=== PATIENT | female | born 1955 | race Caucasian/White ===

== ENCOUNTER → 2016-11-25 | Outpatient (CLI) | payer OTHER ==
[~2016-11-25] MED LIST: ALEVE220 M1 PO; BAYER ASPIRIN325 M1 PO; GLUCOPHAGE XR750 MG PO; HYDROCODON-ACE1 EAC5 PO; INVOKANA100 MG PO; SOMA PO; SYNTHROID175 MCG PO; ZOLOFT PO
--- NOTE | ~2016-11-25 | CO ---
Unit #: [id number] #: [id number] Patient: MELANI ALCARAZ [id number] [address] [place], [place] [address] [id number] O MR#: [id number] NAME: MELANI ALCARAZ ROOM: Age: 61 Sex: F Admission Date: 11/25/2016 : 1955 Attending Physician: Fedreico Barroso M.D. Primary Care Physician: Girish Flores M.D. CONSULTATION REPORT ADDENDUM This is an addendum to . The patient's final urine culture returned positive for Strep agalactiae group B, 80,000 to 90,000 cfu/mL. I spoke with the patient this morning and I have called in Keflex 500 mg tab, one p.o. q.i.d. x7 days, #28, no refills, to her [facility] pharmacy at [facility] in [place], . I have discussed this in detail with the patient. She is to pick the prescription up and start it today. She is to stop the medication and contact me for any concerning adverse effects and/or angioedema, shortness of air, to call 911. The patient does not have an allergy to Keflex per her report. The patient also shows a small amount of yeast in the urine sample. She does not have vaginal symptoms at this time. I have ordered a prescription for Diflucan 150 mg tab, one p.o., on the last day of antibiotics. I have also ordered recheck through clean catch versus straight cath specimen per Dr. Barroso's standing preop orders with C and S if indicated the a.m. of OR to assure clearance of infection. Dictated by... Sonia Hernandez A.P.R.N. for Julio Stone/renetta TD: 11/30/2016 10:41 JOB #: [id number] CONSULTATION REPORT Page 1 of 1 X Sonia Hernandez APRN X CONSULTATION REPORT
--- NOTE | ~2016-11-25 | EKG ---
PATIENT: MELANI ALCARAZ UNIT #: [id number] Ventricular Rate: 55 BPM Atrial Rate: 55 BPM P-R Interval: 178 ms QRS Duration: 78 ms Q-T Interval: 422 ms QTC Calculation(Bezet): 403 ms P [place]: 63 degrees Calculated R [place]: 18 degrees Calculated T [place]: 15 degrees Diagnosis Line: Sinus bradycardia Diagnosis Line: Otherwise normal ECG Diagnosis Line: No previous ECGs available Diagnosis Line: Confirmed by MIK RUEDA MD ([id number]) on 11/25/2016 Diagnosis Line: 10:40:35 PM INTERPRETING MD: MARYBETH JOHNSON
--- NOTE | ~2016-11-25 | CR63 ---
[facility] A Service of [facility] & [facility] RADIOLOGY TEXT RESULTS PATIENT: MELANI ALCARAZ LOCATION: [facility] : 51 UNIT #: [id number] AGE: [address]: Federico Barroso MD SEX: F ORDER DR: [id number] [facility] [address] [place], [place] [address] [id number] O MR#: [id number] Acc #: [id number] NAME: MELANI ALCARAZ : 1955 SEX: F STUDY DATE/TIME: 11/25/2016 9:38 UNIT: [facility] ROOM: STUDY DESCRIPTION: CR Chest 2 View Attending Physician: Federico Barroso M.D. Referring Physician: Federico Barroso M.D. Ordering Physician: Federico Barroso M.D. Primary Care Physician: Girish Flores M.D. MEDICAL IMAGING REPORT This report is preliminary unless electronic signature is present EXAM Chest, 11/25/2016 HISTORY 61-year-old woman preop total left knee arthroplasty. Osteoarthritis. History of diabetes. COMPARISON None FINDINGS Two-view chest demonstrates normal heart size. Hilar structures are preserved. Bilateral lungs are expanded and clear. Costophrenic angles are clear. IMPRESSION Negative preop chest. Dictated by... Don Knox M.D. THIS IS AN ELECTRONICALLY VERIFIED REPORT Don Knox M.D. at 11/25/2016 11:14 AM Tanisha TD: 11/25/2016 10:24 JOB #: [id number] MEDICAL IMAGING REPORT Page 1 of 1 COPY
--- NOTE | ~2016-11-25 | CO ---
Unit #: [id number] #: [id number] Patient: MELANI ALCARAZ [id number] [address] [address] [id number] O MR#: [id number] NAME: MELANI ALCARAZ ROOM: Age: 61 Sex: F Admission Date: 11/25/2016 : 1955 Attending Physician: Federico Barroso M.D. Primary Care Physician: Girish Flores M.D. Consultation Date: 11/25/2016 CONSULTATION REPORT REASON FOR CONSULTATION Preoperative medical evaluation prior to left total knee arthroplasty scheduled by Dr. Barroso for 12/07/16. HISTORY OF PRESENT ILLNESS The patient is a 61-year-old female who presents to pre-procedural screening for the reasons indicated above. She reports pain in the left knee today but has no other complaints. She denies chest pain or pressure, arm, neck, jaw pain or pressure. Denies shortness of air, dyspnea on exertion, orthopnea, paroxysmal nocturnal dyspnea, and sleep apnea. She denies lightheadedness, dizziness, syncope and presyncope. She denies palpitations. She denies past medical history of myocardial infarction, congestive heart failure, CVA, TIA, insulin dependent diabetes mellitus, and kidney disease. She had no other complaints at the time of this interview. She has been evaluated by Dr. Barroso and scheduled for the above reference procedure. PAST MEDICAL HISTORY 1. Osteoarthritis. 2. Type 2 diabetes mellitus. 3. Hypothyroidism. 4. Depression/anxiety. 5. Morbid obesity, BMI 45. 6. Risk factors for obstructive sleep apnea per STOP-Bang protocol. 7. Partial plate for missing teeth. 8. Allergic rhinitis. 9. History of cardiac murmur without symptoms or recommendations for further workup. PAST SURGICAL HISTORY 1. Laparoscopic cholecystectomy. 2. Left breast lumpectomy. The patient denies a personal and family history of complications to anesthesia. ALLERGIES Denies latex allergy. Pen-Vee-K causes a rash. CURRENT MEDICATIONS 1. Glucophage XR 750 mg p.o. b.i.d. 2. Synthroid 175 mcg p.o. every morning. 3. Carisoprodol 175 mg p.o. at bedtime p.r.n. sleep. 4. Invokana 100 mg p.o. every morning. Unit #: [id number] #: [id number] Patient: MELANI ALCARAZ 5. Aleve 220 mg p.o. every morning. 6. Zoloft 25 mg p.o. every morning. SOCIAL HISTORY Denies tobacco use and illicit drug use. Rarely consumes alcohol. FAMILY HISTORY Per review of Dr. Barroso's office note: Father - heart disease. Mother and father - alcoholism. REVIEW OF SYSTEMS A ten point review of systems is conducted and otherwise negative except as indicated under History of Present Illness above. PHYSICAL EXAMINATION GENERAL: 61-year-old female awake, alert, in no acute distress. VITAL SIGNS: Temperature 96.8, heart rate 61, respiratory rate 16, blood pressure 133/60. Oxygen saturation 97% on room air. HEENT: Atraumatic, normocephalic. Sclerae anicteric. No discharge from mouth, ears or nares. LYMPHS: No preauricular, postauricular, tonsillary, submental, anterior, posterior, cervical, supra or infraclavicular adenopathy. ENDOCRINE: No thyromegaly, thyroid nodules or tenderness. RESPIRATORY: Clear to auscultation in all fuentes bilaterally without wheezes, rhonchi or rales. CARDIOVASCULAR: S1, S2. Regular rate and rhythm without murmur or rub. GI: Bowel sounds positive x4. Soft, nontender, nondistended. Morbidly obese and pendulous. EXTREMITIES: No edema, cyanosis or clubbing. MUSCULOSKELETAL: Strength 5/5 all extremities bilaterally to flexion/extension. NEURO: Alert and oriented x3. Speech clear. Cranial nerves II-XII grossly intact. Follows commands. DIAGNOSTIC STUDIES LABORATORY: Hemoglobin A1c 7.3, WBC 7.0, hemoglobin 13.9, hematocrit 43.5, platelets 324,000. PT 10.0, INR 1.0. Urinalysis - leukocyte esterase 1+, glucose greater than 1000, WBC 25-50, bacteria 1+, yeast present. Blood type 0 positive. Antibody screen negative. MRSA nasal swab report pending at this time. IMAGIN-view chest x-ray report pending at this time. CARDIOVASCULAR: 12-lead EKG - sinus bradycardia, otherwise normal ECG. Confirmed report pending at this time. IMPRESSION The patient is a 61-year-old female who presents to pre-procedural screening for: 1. Preoperative medical evaluation prior to left total knee arthroplasty: Patient's Joe Revised Cardiac Risk Index is equal to 0.4%. This represents the patient's perioperative risk of cardiac , fatal or nonfatal myocardial infarction, arrhythmia, cardiopulmonary arrest or pulmonary edema. This has been discussed Unit #: [id number] #: [id number] Patient: MELANI ALCARAZ in detail with the patient and she wishes to proceed with surgery as scheduled at this time. 2. Type 2 diabetes mellitus: Hemoglobin A1c is 7.3 at this time. Will monitor Accu-Cheks postoperatively and adjust medications accordingly. 3. Hypothyroidism: TSH and free T4 are pending at this time. 4. Depression/anxiety. 5. Osteoarthritis. 6. Morbid obesity. 7. Risk factors for obstructive sleep apnea: Recommend HÉCTOR protocol postoperatively. 8. Health maintenance: Patient states she saw a dentist one year ago before moving here from [place]. She denies oral changes or concerns at this time. 9. Allergic rhinitis: Stable. 10. Known history of cardiac murmur: Patient is stable at this point. 11. Possible urinary tract infection: Patient is asymptomatic. Await urine culture and sensitivity at this time. The patient does have yeast in her urine. I have advised that the patient use Monistat or similar medication [id number] for possible vaginal yeast infection. She verbalized understanding of this information. Will follow for urine culture and sensitivity results and add Diflucan preoperatively if indicated. This has been discussed with the patient and she verbalizes understanding of this information. Thank you for allowing us to participate in the care of this patient. Will gladly follow her for postop medical management pending order of Dr. Barroso. Dictated by... Sonia Hernandez A.P.R.N. for Julio Stone/renetta TD: 11/26/2016 07:33 JOB #: [id number] CONSULTATION REPORT Page 1 of 1 X Sonia Hernandez APRN X CONSULTATION REPORT
[2016-11-25 09:00] LABS: URINE APPEARANCE CLEAR; URINE BILIRUBIN NEG (NEG); URINE BLOOD NEG (NEG); URINE COLOR YELLOW; URINE GLUCOSE >1000 MG/DL (NEG); URINE KETONE NEG (NEG); URINE LEUKOCYTE ESTERASE 1+ (NEG); URINE NITRATE NEG (NEG); URINE PH 5.5 (5-8); URINE PROTEIN NEG (NEG); URINE UROBILINOGEN 0.2 MG/DL (NEG)
[2016-11-25 09:02] LABS: CULTURE INDICATED? YES; URBCS1 AUWI 0-2 /[HPF] (0-2); URINE BACTERIA AUWI 1+ (NEGATIVE); URINE SQUAMOUS EPITHELIAL CELL OCC /[HPF]
[2016-11-25 09:03] LABS: HEMATOCRIT 43.5 % (35.0-45.0); HEMOGLOBIN 13.9 gm/dL (12.0-16.0); MEAN CELL VOLUME 90.2 FL (83-96); MEAN CORPUSCULAR HEMOGLOBIN 28.9 PG (28-34); MEAN PLATELET VOLUME 8.9 FL (6.5-11.5); RED BLOOD COUNT 4.82 X10e (3.90-5.30); RED CELL DISTRIBUTION WIDTH 13.8 % (11.0-15.5)
[2016-11-25 09:19] LABS: URINE SOURCE CLEAN CATCH
[2016-11-25 09:20] LABS: URINE YEAST PRESENT
[2016-11-25 09:21] LABS: UWBCS1 AUWI 25-50 (0-5)
[2016-11-25 09:40] LABS: ALBUMIN SERUM 3.6 g/dL (3.5-5.0); BILIRUBIN,TOTAL 0.7 mg/dL (0.2-2.0); CALCIUM SERUM 9.4 mg/dL (8.4-10.2); CREATININE SERUM 0.8 mg/dL (0.6-1.4); GLOM FILT RATE Estimated 78.5 mL/min (>60); POTASSIUM 4.3 mmol/L (3.5-5.1); PROTEIN TOTAL SERUM 7.1 g/dL (6.0-8.3)
[2016-11-25 12:14] LABS: THYROID STIMULATING HORMONE 1.34 uIU/ml (0.34-5.60)
[2016-11-25 12:21] LABS: FREE THYROXIN (T4) 1.26 ng/dL (0.58-1.64)
== END | disposition home or self-care (01) ==
LOC: CAMB 08:06
PROVIDERS: Orthopaedic Surgery
DX: Z01.818 Encounter for other preprocedural examination (principal); M17.12 Unilateral primary osteoarthritis, left knee; E11.9 Type 2 diabetes mellitus without complications; E03.9 Hypothyroidism, unspecified; F41.8 Other specified anxiety disorders; E66.01 Morbid (severe) obesity due to excess calories; G47.33 Obstructive sleep apnea (adult) (pediatric); J30.9 Allergic rhinitis, unspecified; Z88.0 Allergy status to penicillin
CPT/HCPCS: 36415; 71020; 80053; 81003; 83036; 84439; 84443; 85027; 85610; 86850; 86900; 86901; 87070; 87086; 87088; 93005

== ENCOUNTER 2016-12-07 08:52 | Inpatient (IN) | payer OTHER ==
--- NOTE | ~2016-12-07 | OR ---
Unit #: [id number] #: [id number] Patient: MELANI ALCARAZ [id number] [address] [address] [id number] I MR#: [id number] NAME: MELANI ALCARAZ ROOM: 453 Date of Procedure: 12/07/2016 Admission Date: 12/07/2016 Surgeon: Federico Barroso M.D. : 1955 Attending Physician: Federico Barroso M.D. Primary Care Physician: Girish Flores M.D. OPERATIVE REPORT PREOPERATIVE DIAGNOSIS Primary localized osteoarthritis, left knee. POSTOPERATIVE DIAGNOSIS Primary localized osteoarthritis, left knee. PROCEDURE PERFORMED Left total knee. ASSISTANTS Hugh and Miguel. ANESTHESIA Adductor canal block plus general. ESTIMATED BLOOD LOSS 100 mL. INDICATIONS FOR SURGERY This is a 61-year-old lady with severe pain in her left knee. She has had pain for months. X-rays show she has [id number] with subchondral sclerosis and periarticular osteophytes. She has tried injections and anti-inflammatories with no relief of her discomfort. DESCRIPTION OF PROCEDURE The patient was brought to the operating room, given 2 g of vancomycin. This will be continued postop, but discontinued within 23 hours from the start time of surgery. She also given adductor canal block, brought back to the operating room, given a general anesthetic. Tourniquet placed around the left thigh. The left leg was prepped and draped in a sterile fashion. Tourniquet was inflated to 300. A straight anterior skin incision was made. The subcutaneous dissected away and a medial arthrotomy was performed. Patella was slid to the side. Osteophytes were removed from the femur. The intramedullary guide was used and a 6 degree valgus cut was made on the distal femur. The femur was sized and found to be a size 4 narrow. The anterior-posterior cutting block was applied. Rotation was checked in the knee. Anterior and posterior cuts were made along with the chamfer cuts. Proximal tibial cut was made using a 0-degree cutting block. It was sized and found to be a size 3. Any posterior condylar osteophytes were removed. Any remaining meniscal fragments were debrided. The ropivacaine mixture was injected and the patient then had the trial femur applied. The drill holes were made for Unit #: [id number] #: [id number] Patient: MELANI ALCARAZ on the femoral component. Trial tibia was applied with an 8 insert. The knee came to full extension with good stability in extension and flexion. Rotation of the tibia was marked and the external alignment guide showed appropriate alignment of the limb. The patella was grasped with 2 towel clips. It measured 22 mm thick, cut smooth at 14 and a 38 patella was the appropriate size. The 3 drill holes were made. Trial patella applied and it tracked properly. We then removed all the trials. We used the drill and punch for the tibial tray. The knee was irrigated and dried while the cement was mixed. Then, all 3 components were cemented simultaneously. Once again, it was a 4 narrow femur cruciate retaining, size 3 tray and a 38 patella from the [employer] P[employer] Sigma knee system. After the cement was hardened, it was judged that the 8 insert was the appropriate thickness, so this was opened and applied. The tourniquet was released. Hemostasis obtained. The rest of ropivacaine mixture was injected. The wound was closed using 0 Ethibond in the arthrotomy, 0 and 2-0 Vicryl in the subcutaneous, and jeana in the skin and Dermabond on the skin. Dictated by... Julio Smith/arvind TD: 12/08/2016 08:22 JOB #: [id number] OPERATIVE REPORT Page 1 of 1 X Federico Barroso MD PROCEDURE OPERATIVE NOTE
--- NOTE | ~2016-12-07 | OR ---
Unit #: [id number] #: [id number] Patient: MELANI ALCAARZ [id number] [address] [address] [id number] I MR#: [id number] NAME: MELANI ALCARAZ ROOM: 453 Date of Procedure: 12/07/2016 Admission Date: 12/07/2016 Surgeon: Federico Barroso M.D. : 1955 Attending Physician: Federico Barroso M.D. Primary Care Physician: Girish Flores M.D. OPERATIVE REPORT PREOPERATIVE DIAGNOSIS Primary localized osteoarthritis of the left knee. POSTOPERATIVE DIAGNOSIS Primary localized osteoarthritis of the left knee. PROCEDURE PERFORMED Left total knee. ASSISTANTS Hugh and Miguel. ANESTHESIA Adductor canal block plus general. ESTIMATED BLOOD LOSS 100 mL. INDICATIONS FOR PROCEDURE This is a 61-year-old with severe pain in the left knee. She has had pain for years. It has gotten progressively worse. Her x-rays show that she has bhnw-kj-yhza with subchondral sclerosis. She has tried injections and anti-inflammatories with no relief of her discomfort. She was brought to the operating room today for a left total knee. DESCRIPTION OF PROCEDURE The patient was brought to the operating room, given 2 g of vanc. This will be continued postop, but discontinued within 23 hours the start time of surgery. She was then given an adductor canal block, brought back to the operating room, given a general anesthetic. Tourniquet was placed around the left thigh. The left leg was prepped and draped in a sterile fashion. Tourniquet was inflated to 250. A straight anterior skin incision was made. The subcutaneous dissected away and a medial arthrotomy was performed. Patella was slid to the side. Osteophytes were removed from the femur. The intramedullary guide was used and the distal femoral cut was made in 5-degrees of valgus. The femur was then sized and found to be a size 4 narrow. Anterior-posterior cutting block was applied. Rotation checked in the knee. Anterior and posterior cuts were made along with the chamfer cuts. Proximal tibial cut was made using an external guide and once this was done, remaining meniscal fragments were debrided. The tibia was sized and found to be a size 3. The posterior capsule and the periosteum were injected with a ropivacaine. Unit #: [id number] #: [id number] Patient: MELANI ALCARAZ We then removed all the remaining meniscal fragments. The trial femur was applied. The drill holes were made for lugs on the femoral component. Trial tibia was applied with 8 insert. The knee came to full extension and good stability in extension and flexion. Rotation of the tibia was marked and the external alignment guide showed appropriate alignment of the limb. Patella was grasped with 2 towel clips, measured 25 mm thick, cut smooth at 14 and a 38 patella was the appropriate size. The 3 drill holes were made. Trial patella applied and it tracked properly. We then removed all the trials, used the drill and punch for the tibial tray. The knee was irrigated and dried while the cement was mixed. Then, all 3 components were cemented simultaneously. Once again, it was a 4 narrow cruciate retaining femur, size 3 tibial base plate, and a 38 patella from the [employer] P[employer] Sigma Knee System. After the cement was hardened, it was judged that the 8 insert was the appropriate thickness, so this was opened and applied to the tray. The tourniquet was released. Hemostasis was obtained and the wound was closed using 0 Ethibond in the arthrotomy, 0 and 2-0 Vicryl in the subcutaneous, and jeana in the skin. cashier assistant, Eliezer Reese, was present throughout the entire case. Dictated by... Julio Smith/arvind TD: 12/13/2016 22:51 JOB #: [id number] OPERATIVE REPORT Page 1 of 1 X Federico Barroso MD PROCEDURE OPERATIVE NOTE
--- NOTE | ~2016-12-07 | DS ---
Unit #: [id number] #: [id number] Patient: MELANI ALCARAZ [id number] [address] [address] [id number] I MR#: [id number] NAME: MELANI ALCARAZ ROOM: 453 Age: 61 Sex: F Admission Date: 12/07/2016 : 1955 Discharge Date: 12/09/2016 Attending Physician: Federico Barroso M.D. Primary Care Physician: Girish Flores M.D. DISCHARGE SUMMARY ADMITTING DIAGNOSIS Severe osteoarthritis, left knee. PROCEDURE Left total knee arthroplasty. HOSPITAL COURSE The patient was admitted to [facility] with a history of severe osteoarthritis of the left knee. The patient had undergone the above procedure. The patient, today, is in stable condition. Her temperature is 98.3, blood pressure 121/56, heart rate 65 and regular, respirations 16. Her incision is healing well, neurovascular exam is intact. She has 2+ pulses in her lower extremity. The plan will be to send her home later today. DISPOSITION Home with home health which is A. MEDICATIONS Per Med Rec list. She will be on her regular home medications plus aspirin 325 mg, enteric coated, b.i.d. and [place] for pain control. FOLLOWUP INSTRUCTIONS The patient will be seen by [facility]. She will participate in physical therapy including active, active assist, range of motion, strengthening, progressive ambulation, begin with a walker and progress to a cane as tolerated. The patient should wear EBEN hose during the day and off at night. Patient will see Dr. Barroso on 01/15/2017. Again, she will get aspirin 325 twice a day for DVT prophylaxis. Dictated by... Eliezer Reese P.A.-C- for Julio Smith/renetta TD: 12/09/2016 09:24 JOB #: [id number] Unit #: [id number] #: [id number] Patient: MELANI ALCARAZ DISCHARGE SUMMARY Page 1 of 1 X X DISCHARGE SUMMARY
[~2016-12-07 08:52] MED LIST changes: -BAYER ASPIRIN325 M1 PO; -HYDROCODON-ACE1 EAC5 PO
[2016-12-07 09:46] LABS: URINE SOURCE CLEAN CATCH
[2016-12-07 09:52] LABS: URINE APPEARANCE CLOUDY; URINE BILIRUBIN NEG (NEG); URINE BLOOD NEG (NEG); URINE COLOR YELLOW; URINE GLUCOSE >1000 MG/DL (NEG); URINE KETONE NEG (NEG); URINE LEUKOCYTE ESTERASE TRACE (NEG); URINE NITRATE NEG (NEG); URINE PROTEIN NEG (NEG)
[2016-12-07 09:54] LABS: CULTURE INDICATED? YES; U HYALINE CASTS AUWI 0-2 /[LPF]; URINE BACTERIA AUWI NEG (NEGATIVE); URINE SQUAMOUS EPITHELIAL CELL OCC /[HPF]
[2016-12-07 10:03] LABS: PROTHROMBIN TIME (PATIENT) 10.2 SECONDS (9.6-11.5)
[2016-12-08 04:00] LABS: HEMATOCRIT 36.8 % (35.0-45.0); HEMOGLOBIN 11.8 gm/dL (12.0-16.0); MEAN CELL VOLUME 90.7 FL (83-96); MEAN CORPUSCULAR HEMOGLOBIN 29.2 PG (28-34); MEAN CORPUSCULAR HGB CONC 32.2 g/dL (30-36); MEAN PLATELET VOLUME 9.2 FL (6.5-11.5); RED BLOOD COUNT 4.05 X10e (3.90-5.30); RED CELL DISTRIBUTION WIDTH 13.7 % (11.0-15.5); WHITE BLOOD COUNT 13.1 X10e3 (4.0-10.5)
[2016-12-08 04:20] LABS: BUN/CREATININE RATIO 25.71; CALCIUM SERUM 8.3 mg/dL (8.4-10.2); CREATININE SERUM 0.7 mg/dL (0.6-1.4); GLOM FILT RATE Estimated 92.2 mL/min (>60)
[2016-12-09 03:12] LABS: HEMATOCRIT 36.6 % (35.0-45.0); HEMOGLOBIN 11.4 gm/dL (12.0-16.0)
[2016-12-09 03:43] LABS: BUN/CREATININE RATIO 28.75; CALCIUM SERUM 8.5 mg/dL (8.4-10.2); CREATININE SERUM 0.8 mg/dL (0.6-1.4); GLOM FILT RATE Estimated 78.5 mL/min (>60); POTASSIUM 3.9 mmol/L (3.5-5.1)
[2016-12-09] MEDS ORDERED: HYDROCODON-ACE1 EAC5 PO (12:40)
[2016-12-09] MEDS ORDERED: BAYER ASPIRIN325 M1 PO (12:41)
== END 2016-12-09 15:23 | disposition home health service (06) | DRG 470 ==
LOC: CSUR 08:52 → CPACUOF 10:20 → C4B 18:23
PROVIDERS: Internal Medicine; Nurse Practitioner; Orthopaedic Surgery
PROC: 0SRD0J9 Replacement of Left Knee Joint with Synthetic Substitute, Cemented, Open Approach (ICD-10-PCS; principal; 2016-12-07 11:00)
DX: M17.12 Unilateral primary osteoarthritis, left knee (principal); D62 Acute posthemorrhagic anemia; Z68.41 Body mass index [BMI] 40.0-44.9, adult; E66.01 Morbid (severe) obesity due to excess calories; G47.33 Obstructive sleep apnea (adult) (pediatric); E11.9 Type 2 diabetes mellitus without complications; F32.9 Major depressive disorder, single episode, unspecified; E03.9 Hypothyroidism, unspecified; Z79.82 Long term (current) use of aspirin; F41.9 Anxiety disorder, unspecified; R01.1 Cardiac murmur, unspecified
CPT/HCPCS: 80048; 81003; 82947; 83735; 85014; 85018; 85027; 85610; 87086; 97110; 97116; 97161; 97166; 97530; 97535; C1776; J0131; J0171; J0735; J1100; J1170; J1815; J1885; J2250; J2405; J2795; J3010; J3370